=== PATIENT | male | born 1985 | race Two or more races ===

== ENCOUNTER 2020-03-03 12:44 | Emergency (ER) | payer MEDICAID, OTHER ==
[~2020-03-03] VITALS: Ht 170.2 cm; Wt 77.1 kg
[2020-03-03 15:46] VITALS: BP 135/72
== END 2020-03-03 15:47 | disposition home or self-care (01) ==
LOC: ER 12:44
DX: L03.012 Cellulitis of left finger (principal); F41.9 Anxiety disorder, unspecified; F17.210 Nicotine dependence, cigarettes, uncomplicated